=== PATIENT | female | born 1985 | race American Indian/Alaskan Native ===

== ENCOUNTER 2017-05-21 14:08 | Emergency (ER) | payer BC, MEDICAID ==
--- NOTE | 2017-05-21 15:29 | Emergency Department Report ---
ED Abdominal Pain HPI - General Chief Complaint: Abdominal Pain Stated Complaint: ABDOMINAL PAIN Time Seen by Provider: 05/21/17 14:59 Source: patient Mode of arrival: Ambulatory Limitations: No Limitations - History of Present Illness Initial Comments: 31-year-old female past medical history pancreatitis presents with complaint of 2 days of progressively colicky worsening intensity abdominal pain worsen epigastric region. Patient denies vomiting but does state that she was slightly nauseous earlier today. Patient is awake alert and oriented 3 nontoxic-appearing fully lucid denies chest pain dysuria or increased urinary frequency denies any rash. Primarily complaining of pain in epigastric region which radiates throughout her abdomen. Denies any recent travel denies any diarrhea. Patient is accompanied by family member at bedside. States that occasionally pain is worse without eating and slightly better after eating. MD Complaint: abdominal pain Onset/Timin -: days(s), This morning Location: diffuse, periumbilical Migration to: periumbilical, epigastric Severity: moderate Quality: aching Consistency: constant Improves With: nothing Associated Symptoms: nausea - Related Data Previous Rx's Medication Instructions Recorded Last Taken Type Ferrous Sulfate [Feosol 325 MG tab] 325 mg PO BID #60 tablet 07/19/15 Unknown Rx Ibuprofen [Motrin] 800 mg PO Q8HR PRN #30 tablet 07/19/15 Unknown Rx Vit-Fe Fumar-FA [ 1 tab PO QDAY #30 tablet 07/19/15 Unknown Rx Vitamin] Famotidine [Pepcid] 20 mg PO BID PRN #30 tablet 05/21/17 Unknown Rx HYDROcodone/APAP 5-325 [[place] 1 each PO Q6HR PRN #12 tablet 05/21/17 Unknown Rx 5/325] Ibuprofen [Motrin] 600 mg PO Q8H PRN #30 tablet 05/21/17 Unknown Rx Ondansetron [Zofran Odt] 4 mg PO Q8HR PRN #12 tab.rapdis 05/21/17 Unknown Rx Allergies Allergy/AdvReac Type Severity Reaction Status Date / Time No Known Allergies Allergy Verified 07/18/15 04:34 ED Review of Systems ROS: Stated complaint: ABDOMINAL PAIN Other details as noted in HPI Constitutional: denies: chills, fever Eyes: denies: eye pain, eye discharge, vision change ENT: denies: ear pain, throat pain Respiratory: denies: cough, shortness of breath, wheezing Cardiovascular: denies: chest pain, palpitations Endocrine: no symptoms reported Gastrointestinal: abdominal pain. denies: nausea, diarrhea Genitourinary: denies: urgency, dysuria, discharge Musculoskeletal: denies: back pain, joint swelling, arthralgia Skin: denies: rash, lesions Neurological: denies: headache, weakness, paresthesias Psychiatric: denies: anxiety, depression Hematological/Lymphatic: denies: easy bleeding, easy bruising ED Past Medical Hx - Past Medical History Previous Medical History?: Yes Hx Hypertension: No Hx Congestive Heart Failure: No Hx Diabetes: No Hx Deep Vein Thrombosis: No Hx Renal Disease: Yes (Kidney infection) Hx Sickle Cell Disease: No Hx Seizures: No Hx Asthma: No Hx COPD: No Hx HIV: No - Surgical History Past Surgical History?: Yes Hx Appendectomy: Yes - Social History Smoking Status: Never Smoker Substance Use Type: None - Medications Home Medications: Home Medications Medication Instructions Recorded Confirmed Last Taken Type Ferrous Sulfate [Feosol 325 MG tab] 325 mg PO BID #60 tablet 07/19/15 Unknown Rx Ibuprofen [Motrin] 800 mg PO Q8HR PRN #30 tablet 07/19/15 Unknown Rx Vit-Fe Fumar-FA [ 1 tab PO QDAY #30 tablet 07/19/15 Unknown Rx Vitamin] Famotidine [Pepcid] 20 mg PO BID PRN #30 tablet 05/21/17 Unknown Rx HYDROcodone/APAP 5-325 [[place] 1 each PO Q6HR PRN #12 tablet 05/21/17 Unknown Rx 5/325] Ibuprofen [Motrin] 600 mg PO Q8H PRN #30 tablet 05/21/17 Unknown Rx Ondansetron [Zofran Odt] 4 mg PO Q8HR PRN #12 tab.rapdis 05/21/17 Unknown Rx ED Physical Exam - General Limitations: No Limitations General appearance: alert, in no apparent distress - Head Head exam: Present: atraumatic, normocephalic - Eye Eye exam: Present: normal appearance, PERRL, EOMI - ENT ENT exam: Present: mucous membranes moist - Neck Neck exam: Present: normal inspection - Respiratory Respiratory exam: Present: normal lung sounds bilaterally. Absent: respiratory distress - Cardiovascular Cardiovascular Exam: Present: regular rate, normal rhythm. Absent: systolic murmur, diastolic murmur, rubs, gallop - GI/Abdominal GI/Abdominal exam: Present: tenderness (some reproducible epigastric tenderness on deep palpation. No right lower quadrant tenderness Smith sign negative on clinical exam CVA negative tenderness bilaterally), normal bowel sounds - Extremities Exam Extremities exam: Present: normal inspection - Back Exam Back exam: Present: normal inspection - Neurological Exam Neurological exam: Present: alert, oriented X3 - Psychiatric Psychiatric exam: Present: normal affect, normal mood - Skin Skin exam: Present: warm, dry, intact, normal color. Absent: rash ED Course Vital Signs 05/21/17 05/21/17 05/21/17 14:45 15:55 16:06 Temperature 99.4 F Pulse Rate 99 H Respiratory 18 16 18 Rate Blood Pressure 114/74 Blood Pressure [Right] O2 Sat by Pulse 100 99 Oximetry 05/21/17 05/21/17 05/21/17 19:09 19:10 19:31 Temperature 99 F Pulse Rate 92 H 92 H Respiratory 18 18 Rate Blood Pressure Blood Pressure 99/54 110/66 [Right] O2 Sat by Pulse 95 Oximetry ED Medical Decision Making - Lab Data Result diagrams: 05/21/17 15:25 05/21/17 15:25 - Medical Decision Making A/P: Abdominal pain, biliary colic 1-I case discussed with Dr. Quezada the ED attending who also examined and spoke to the patient 2-CAT scan of abdomen with by mouth and IV contrast, ultrasound of abdomen both consistent with biliary colic. Multiple gallstones but no acute overt inflammation of the gallbladder. This is consistent with periumbilical/ epigastric pain on exam. Patient is able to tolerate by mouth fluids without difficulty 3-short course [place] when necessary, short course of Motrin urine, Pepcid when necessary, Zofran when necessary 4- patient advised to follow-up with Gen. surgery for biliary colic and advised to return to the ED for inability to tolerate by mouth, persistent fevers and chills above 100.4 despite Motrin or Tylenol use, projectile vomiting, severe worsening abdominal pain, fevers and chills. Patient stated she understood these instructions. 5-as patient is tolerating by mouth with normal vital signs will discharge with precautions and follow-up with Gen. surgery Critical care attestation.: If time is entered above; I have spent that time in minutes in the direct care of this critically ill patient, excluding procedure time. ED Disposition Clinical Impression: Biliary colic Disposition: DC- TO HOME OR SELFCARE Is pt being admited?: No Does the pt Need Aspirin: No Condition: Stable Instructions: Abdominal Pain (ED), Biliary Colic (ED) Prescriptions: Famotidine [Pepcid] 20 mg PO BID PRN #30 tablet PRN Reason: Indigestion HYDROcodone/APAP 5-325 [[place] 5/325] 1 each PO Q6HR PRN #12 tablet PRN Reason: Pain Ibuprofen [Motrin] 600 mg PO Q8H PRN #30 tablet PRN Reason: Pain Ondansetron [Zofran Odt] 4 mg PO Q8HR PRN #12 tab.rapdis PRN Reason: Nausea Referrals: PRIMARY CARE, [Primary Care Provider] - 3-5 Days XIANG HAMPTON MD [Staff Physician] - 3-5 Days JACOB LONGORIA DO [Staff Physician] - 3-5 Days Forms: Accompanied Note, Work/School Release Form(ED) Time of Disposition: 22:04
[2017-05-21] MEDS: MORPHINE IV ONE ×2 (15:36→19:31)
[2017-05-21] MEDS: NACL 0.9% 1000 ML 1,000 ML IV ONE ×2 (15:36→19:31)
[2017-05-21 15:41] LABS: Bilirubin,Urine NEG (Negative); Blood,Urine NEG (Negative); Ketones,Urine NEG (Negative); Leukocyte Esterase,Urine LG (Negative); Mucus,Urine FEW /HPF; Nitrite,Urine NEG (Negative); Protein,Urine <15 mg/dL mg/dL (Negative); RBC,Urine < 1.0 /HPF (0.0-6.0); Urobilinogen,Urine < 2.0 mg/dL (<2.0)
[2017-05-21 15:47] LABS: Basophils % (Auto) 0.1 % (0.0-1.8); Eosinophils % (Auto) 0.4 % (0.0-4.3); Hematocrit 36.9 % (30.3-42.9); Hemoglobin 12.6 gm/dl (10.1-14.3); Mean Corpuscular HGB Conc 34 % (30-34); Mean Corpuscular Hemoglobin 28 pg (28-32); Mean Corpuscular Volume 83 fl (79-97); Platelet Count 141 K/mm3 (140-440); Red Blood Count 4.43 M/mm3 (3.65-5.03); Red Cell Distribution Width 15.7 % (13.2-15.2); White Blood Count 9.1 K/mm3 (4.5-11.0)
[2017-05-21 15:58] LABS: Alanine Aminotransferase 22 units/L (7-56); Albumin 4.2 g/dL (3.9-5); Albumin/Globulin Ratio 1.6 %; Alkaline Phosphatase 40 units/L (35-129); Anion Gap 16 mmol/L; BUN/Creatinine Ratio 15; Blood Urea Nitrogen 9 mg/dL (7-17); Calcium 8.8 mg/dL (8.4-10.2); Carbon Dioxide 26 mmol/L (22-30); Chloride 101.3 mmol/L (98-107); Glucose 77 mg/dL (65-100); Lipase 60 units/L (13-60); Potassium 3.9 mmol/L (3.6-5.0); Sodium 139 mmol/L (137-145); Total Protein 6.8 g/dL (6.3-8.2)
[2017-05-21] MEDS: NACL ONE (15:59)
[2017-05-21] MEDS ORDERED: MORPHINE ONE (19:28)
--- NOTE | 2017-05-21 19:39 | Cat Scan Report ---
FINAL REPORT EXAM: CT ABDOMEN PELVIS W CON HISTORY: abdominal pain TECHNIQUE: Dynamic helical CT scan through the abdomen and pelvis after ingestion of oral contrast and during and again after intravenous injection of iodinated contrast. Images are reconstructed in the sagittal and coronal planes. PRIORS: None. FINDINGS: The lung bases are clear. The liver, pancreas, spleen and adrenal glands appear normal. There are multiple stones in the gallbladder. The kidneys appear normal. There is an IUD in the uterus. Otherwise, the uterus and ovaries appear normal. There is a collapsed follicle right ovary. There is a small amount of free fluid in the pelvis likely physiologic in nature. The stomach appears grossly within normal limits. There are no abnormally dilated loops of bowel or acute inflammatory changes. The appendix is not discretely visualized but there are no inflammatory changes in the right lower quadrant around the area of the cecum. The abdominal aorta has a normal diameter. The bones and subcutaneous soft tissues are unremarkable for age. IMPRESSION: Cholelithiasis. Otherwise, no acute findings in the abdomen/pelvis
[2017-05-21] MEDS: ZOFRAN IV ONE (21:00)
[2017-05-21] MEDS ORDERED: ZOFRAN ONE (21:14)
--- NOTE | 2017-05-21 21:14 | Ultrasound Report ---
FINAL REPORT EXAM: US ABDOMEN LIMITED HISTORY: RUQ biliary colic TECHNIQUE: Real-time sonography was performed of the right upper quadrant and images are submitted for interpretation. PRIORS: None. FINDINGS: The liver has a normal homogeneous echotexture without focal lesions. The gallbladder is filled with numerous stones. There is no gallbladder wall thickening. There is no evidence of biliary dilatation, the common bile duct measures 5 millimeters. The pancreas has a normal echogenicity and appearance. The visualized segments of the abdominal aorta and inferior vena cava appear normal. The right kidney appears normal in size, shape and echogenicity, measuring 10.3 x 3.9 x 6.0 cm. IMPRESSION: Cholelithiasis without sonographic evidence of acute cholecystitis
[2017-05-21 22:06] VITALS: BP 114/68
== END 2017-05-21 22:06 | disposition home or self-care (01) ==
LOC: ED 14:08
DX: K80.50 Calculus of bile duct without cholangitis or cholecystitis without obstruction (principal)
CPT/HCPCS: 36415; 74177; 76705; 80053; 81001; 81025; 82140; 82150; 83690; 85025; 96361; 96374; 96375; 96376; 99284; J2270; J2405; J7030; Q9967

== ENCOUNTER 2019-05-08 11:37 | Outpatient (CLI) | payer BC ==
[2019-05-08 12:21] LABS: BUN/Creatinine Ratio 17; Blood Urea Nitrogen 10 mg/dL (7-17); Calcium 9.1 mg/dL (8.4-10.2); Hemolysis Index 3
== END 2019-05-08 11:38 | disposition home or self-care (01) ==
LOC: LAB 11:37
PROVIDERS: ATTEND Surgery
DX: R10.817 Generalized abdominal tenderness (principal)
CPT/HCPCS: 36415; 80048

== ENCOUNTER 2019-05-14 06:24 | Outpatient (CLI) | payer BC ==
--- NOTE | 2019-05-14 10:29 | Cat Scan Report ---
CT ABDOMEN AND PELVIS WITH CONTRAST HISTORY: GENERALIZED ABDOMINAL TENDERNESS COMPARISON: 05/21/2017 TECHNIQUE: Axial CT images were obtained through the abdomen and pelvis after 100 cc of Omnipaque 300 intravenously. Sagittal and coronal reformatted images. All CT scans at this location are performed using CT dose reduction for ALARA by means of automated exposure control. FINDINGS: CT ABDOMEN: Lung Bases: Clear. Liver: The liver is normal size and contour. Mild diffuse fatty infiltration is stable. Biliary: Subtle noncalcified gallstones are suggested which are less evident when comparing to the pr evious exam. The common bile duct appears normal caliber. Spleen: No significant abnormality. Unenlarged. Pancreas: No significant abnormality. Adrenals: No significant abnormality. Kidneys: No significant abnormality. Lymphatics: No lymphadenopathy. Vasculature: No significant abnormality. Bowel/Peritoneum: No significant abnormality. No free air. No obstruction. The appendix is not confid ently identified although no inflammatory changes in the right lower quadrant. CT PELVIS: : A 2.6 cm peripherally enhancing irregular lesion is identified in the right ovary. This probably represents a recently ruptured ovarian cyst. The uterus and left ovary are unremarkable. An intrauter ine device appears in good position. The bladder and distal ureters are unremarkable. Osseous Structures: No significant abnormality. Additional Findings: A pelvic ascites. IMPRESSION: 2.6 cm right ovarian cyst and small pelvic ascites. Correlate for ovarian cystic disease. Cholelithiasis. No evidence for acute cholecystitis. Mild hepatic steatosis. No acute inflammatory process is identified. Signer Name: Orion Watts Jr, MD Signed: 05/14/2019 10:24 AM Workstation Name: [id number]
== END 2019-05-14 06:25 | disposition home or self-care (01) ==
LOC: CT 06:24
PROVIDERS: ATTEND Surgery
DX: N83.201 Unspecified ovarian cyst, right side (principal); R18.8 Other ascites; R10.817 Generalized abdominal tenderness
CPT/HCPCS: 74177; Q9967

== ENCOUNTER 2019-05-31 07:30 | Outpatient (CLI) | payer BC ==
--- NOTE | 2019-05-31 14:02 | Ultrasound Report ---
ULTRASOUND ABDOMEN, COMPLETE INDICATION: ABDOMEN PAIN. COMPARISON: CT abdomen pelvis with contrast dated 05/14/2019. FINDINGS: Pancreas: No significant abnormality. Abdominal Aorta: No significant abnormality. IVC: No significant abnormality. Liver: The liver measures 12.6 cm in length. No significant abnormality. Normal hepatopedal blood fl ow in the main portal vein. Gallbladder: There are numerous shadowing gallstones in the gallbladder. No distention or significant wall thickening or surrounding fluid.. Bile ducts: No significant abnormality. Common bile duct measures 3.6 mm. Kidneys: Right: 9.0 cm in length. No significant abnormality. Left: 10.2 cm in length. No signifi cant abnormality. Spleen: No significant abnormality. Free fluid: None. Additional Findings: None. IMPRESSION: Cholelithiasis. No evidence for acute cholecystitis.. Signer Name: Orion Watts Jr, MD Signed: 05/31/2019 1:58 PM Workstation Name: [id number]
--- NOTE | 2019-05-31 14:05 | Ultrasound Report ---
ULTRASOUND PELVIC COMPLETE HISTORY: Pelvic pain TECHNIQUE: Transabdominal imaging with color Doppler interrogation. COMPARISON: CT abdomen pelvis with contrast dated 05/14/2019. FINDINGS: The uterus is anteverted. The uterus measures 7.5 x 4.0 x 4.2 cm. No uterine mass is identified. The cervix is unremarkable. The endometrium measures 7.5 mm in thickness. An intrauterine device is identified which appears in g ood position. The right ovary measures 2.8 x 2.7 x 3.1 cm. The left ovary measures 3.5 x 2.3 x 3.1 cm. Normal-appea ring follicles are identified bilaterally. No pelvic fluid collection. IMPRESSION: Unremarkable pelvic ultrasound. IUD appears in good position. Right ovarian lesion has resolved since the previous CT Signer Name: Orion Watts Jr, MD Signed: 05/31/2019 2:00 PM Workstation Name: [id number]
== END 2019-05-31 07:31 | disposition home or self-care (01) ==
LOC: US 07:30
PROVIDERS: ATTEND Obstetrics & Gynecology
DX: K80.20 Calculus of gallbladder without cholecystitis without obstruction (principal)
CPT/HCPCS: 76700; 76856